=== PATIENT | male | born 1965 | race American Indian/Alaskan Native ===

== ENCOUNTER 2017-04-21 07:38 | Emergency (ER) | payer OTHER ==
[2017-04-21] MEDS ORDERED: NACL 0.9% 1000 ML 1,000 ML IV ONE (11:36)
[2017-04-21] MEDS ORDERED: MORPHINE IV ONE (11:36)
[2017-04-21] MEDS ORDERED: APRESOLINE IV ONE (11:38)
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
[2017-04-21 12:13] LABS: Basophils % (Auto) 0.5 % (0.0-1.8); Eosinophils % (Auto) 1.2 % (0.0-4.3); Hematocrit 42.4 % (35.5-45.6); Hemoglobin 14.5 gm/dl (11.8-15.2); Mean Corpuscular HGB Conc 34 % (32-34); Mean Corpuscular Hemoglobin 28 pg (28-32); Mean Corpuscular Volume 82 fl (84-94); Platelet Count 189 K/mm3 (140-440); Red Blood Count 5.16 M/mm3 (3.65-5.03); Red Cell Distribution Width 13.4 % (13.2-15.2); White Blood Count 6.9 K/mm3 (4.5-11.0)
[2017-04-21 12:14] LABS: INR 0.99 (0.87-1.13)
[2017-04-21 12:19] LABS: Alanine Aminotransferase 38 units/L (7-56); Albumin 4.6 g/dL (3.9-5); Albumin/Globulin Ratio 1.5 %; Alkaline Phosphatase 54 units/L (35-129); Anion Gap 19 mmol/L; Blood Urea Nitrogen 12 mg/dL (9-20); Calcium 9.3 mg/dL (8.4-10.2); Carbon Dioxide 27 mmol/L (22-30); Chloride 99.2 mmol/L (98-107); Creatine Kinase 579 units/L (55-170); Glucose 102 mg/dL (75-100); Potassium 3.1 mmol/L (3.6-5.0); Sodium 142 mmol/L (137-145); Total Protein 7.7 g/dL (6.3-8.2)
[2017-04-21] MEDS ORDERED: K-DUR PO ONE (12:28)
[2017-04-21] MEDS ORDERED: MAGNESIUM SULFATE 2GM/50ML 2 GM/50 ML BAG IV ONE (12:28)
[2017-04-21 12:36] LABS: Bacteria,Urine 1+ /HPF (Negative); Bilirubin,Urine NEG (Negative); Blood,Urine NEG (Negative); Ketones,Urine NEG (Negative); Leukocyte Esterase,Urine NEG (Negative); Mucus,Urine FEW /HPF; Nitrite,Urine NEG (Negative); Protein,Urine <15 mg/dL mg/dL (Negative); Urobilinogen,Urine < 2.0 mg/dL (<2.0); WBC,Urine < 1.0 /HPF (0.0-6.0)
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
[2017-04-21] MEDS ORDERED: NACL ONE (13:10)
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
[2017-04-21] MEDS: KCL 10MEQ/100ML 10 MEQ/100 ML BAG IV SCH ×2 (14:00→15:32)
[2017-04-21] MEDS ORDERED: NACL 0.9% 250ML 250 ML IV ONE (15:29)
[2017-04-21 16:35] VITALS: BP 110/78
[2017-04-21] MEDS ORDERED: KCL 10MEQ/100ML 10 MEQ/100 ML BAG IV ONE (17:42)
== END 2017-04-21 16:36 | disposition home or self-care (01) ==
LOC: ED 07:38
DX: I10 Essential (primary) hypertension (principal); R55 Syncope and collapse; M54.2 Cervicalgia; R07.89 Other chest pain; V49.49XA Driver injured in collision with other motor vehicles in traffic accident, initial encounter; Y93.9 Activity, unspecified; Y92.9 Unspecified place or not applicable; Y99.9 Unspecified external cause status
CPT/HCPCS: 36415; 70450; 71010; 71275; 72125; 74177; 80053; 81001; 82550; 84484; 85025; 85610; 93005; 93010; 96361; 96365; 96375; 99285; J0360; J2270; J3475; J3480; J7030; J7050; Q9967